=== PATIENT | female | born 1985 | race Caucasian/White ===

== ENCOUNTER 2016-06-12 04:05 | Emergency (ER) | payer MEDICAID ==
[~2016-06-12] VITALS: Ht 149.9 cm; Wt 43.1 kg
[2016-06-12 04:56] LABS: BASOPHIL % 0.3 % (0-2); PLATELET COUNT 214 x10^3mcL (130-400); RED CELL DISTRIBUTION WIDTH 13.1 % (11.5-14.5)
[2016-06-12 08:01] VITALS: BP 113/50
== END 2016-06-12 06:17 | disposition home or self-care (01) ==
LOC: ED 04:05
PROVIDERS: Emergency Medicine
DX: O03.6 Delayed or excessive hemorrhage following complete or unspecified spontaneous abortion (principal)
CPT/HCPCS: J2270; J2405; J7030; Q0092; Q0162